=== PATIENT | female | born 1950 | race American Indian/Alaskan Native ===

== ENCOUNTER 2016-04-22 11:58 | Outpatient (CLI) | payer MEDICARE ==
--- NOTE | 2016-04-23 08:32 | Ultrasound Report ---
ULTRASOUND THYROID SCAN: HISTORY: Thyroid nodule. FINDINGS: The thyroid gland is mildly enlarged. The right lobe measures 6.2 x 1.7 x 2.5 cm. The left lobe measures 5.7 x 1.5 x 2.3 cm. The isthmus measures 0.5 cm. There are 2 solid nodules in the right thyroid lobe measuring 1.4 cm and 2.9 cm. There are 2 nodules in the left thyroid lobe measuring 1.1 cm and 1.9 cm. An isthmus nodule measures 2.9 cm. These nodules overall have a rather benign appearance. No complex cystic change or calcifications. IMPRESSION: Probable multinodular goiter.
--- NOTE | 2016-04-25 13:40 | Vascular Lab Report ---
CAROTID DUPLEX STUDY: RIGHT PSVEDV CCA PROX:[id number] CCA DIST:[id number] ICA PROX:6323 ICA MID:8835 ICA DIST:[id number] ECA: [id number] VERT: 59 21 LEFT PSVEDV CCA PROX:33270 CCA DIST:7021 ICA PROX:6016 ICA MID:7830 ICA DIST:[id number] ECA: [id number] VERT: 30 6 REASON FOR EXAM: Carotid artery stenosis. COMMENTS ON THE RIGHT: Doppler frequency analysis is consistent with 16 to 49 percent diameter reduction of the internal carotid artery. Minimal amount of plaque is seen. The common carotid artery is patent. The external carotid artery is patent. The vertebral artery has antegrade flow. COMMENTS ON THE LEFT: Doppler frequency analysis is consistent with 16 to 49 percent diameter reduction of the internal carotid artery. Minimal amount of plaque is seen. The common carotid artery is patent. The external carotid artery is patent. The vertebral artery has antegrade flow. IMPRESSION: Less than 50% diameter reduction in the internal carotid arteries bilaterally. Consider repeat carotid artery duplex in 12 months.
== END 2016-04-22 11:59 | disposition home or self-care (01) ==
LOC: VAS 11:58
PROVIDERS: ATTEND Physician Assistant
DX: R04.1 Hemorrhage from throat (principal); E04.9 Nontoxic goiter, unspecified
CPT/HCPCS: 76536; 93880

== ENCOUNTER 2016-05-20 13:00 | Outpatient (CLI) | payer MEDICARE ==
--- NOTE | 2016-05-21 14:48 | Mammography Report ---
BILATERAL DIGITAL SCREENING MAMMOGRAM with CAD: 05/20/16 13:00:00 CLINICAL: Routine screening. COMPARISON:None available. FINDINGS: The breasts are heterogeneously dense, which may obscure small masses. No mass, architectural distortion or suspicious calcifications. IMPRESSION: No mammographic evidence of malignancy. BI-RADS CATEGORY: 1 - - Negative RECOMMENDATION: Routine mammographic screening in one year. COMMENT: Patient follow-up letters are generated by our [employer] application. The
== END 2016-05-20 13:01 | disposition home or self-care (01) ==
LOC: SPVWC 13:00
PROVIDERS: ATTEND Physician Assistant
DX: Z12.31 Encounter for screening mammogram for malignant neoplasm of breast (principal)
CPT/HCPCS: 77067; G0202